=== PATIENT | male | born 1975 | race Caucasian/White ===

== ENCOUNTER 2021-02-26 14:49 | Emergency (ER) | payer SELFPAY ==
[2021-02-26] MEDS ORDERED: methylPREDNISolone Sodium Succinate 125 MG/2 ML SDV IM ONE (16:32)
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
--- NOTE | 2021-02-26 16:40 | PCM.SN.2 ---
- Free Text/Narrative Note: EKG done at 1636 hrs. sinus rhythm heart rate 85 OH 151 QT duration 442 [place] [address] and T no prior for comparison impression normal EKG
[2021-02-26 16:57] LABS: BLOOD UREA NITROGEN,BUN 18 mg/dL (7.0-18.0); CARBON DIOXIDE,CO2 27.2 mmol/L (21.0-32.0); CHLORIDE,CL 102 mmol/L (98-107); GLUCOSE RANDOM 115 mg/dL (74-106); POTASSIUM,K 3.8 mmol/L (3.5-5.1); SODIUM,NA 137 mmol/L (136-148)
--- NOTE | 2021-02-26 17:58 | CR ---
HISTORY: HISTORY COMPARISON: None available FINDINGS: A portable erect AP lordotic view of the chest was obtained at 1621 hours. The lungs are clear. No focal or diffuse infiltrates are present. There is no sign of increased interstitial markings to suggest an inhalational pneumonitis. The heart is normal in size. The mediastinum is normal in appearance. The osseous structures are normal in appearance for the patient`s age. IMPRESSION: Normal portable chest single view. Nothing seen to suggest inhalational pneumonitis. Dictated by Lele Lopez MD @ 02/26/2021 5:57:[address] Lele Lopez @ Feb 26 2021 5:57PM
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
== END 2021-02-26 19:04 | disposition home or self-care (01) ==
LOC: MW.ED 14:49
DX: Z77.098 Contact with and (suspected) exposure to other hazardous, chiefly nonmedicinal, chemicals (principal); Z88.8 Allergy status to other drugs, medicaments and biological substances; Z72.0 Tobacco use
CPT/HCPCS: 36415; 71045; 80053; 82375; 82803; 85025; 87651; 93005; 96372; 99284; J2930